=== PATIENT | male | born 1975 | race Caucasian/White ===

== ENCOUNTER 2017-03-29 11:50 | Emergency (ER) | payer OTHER ==
[~2017-03-29] VITALS: Ht 175.3 cm; Wt 71.5 kg
[~2017-03-29 11:50] MED LIST: ALBU8.5H3 INH; CEPH-443 PO; CEPH500C PO; ERYT1OIN6 LEFT EYE; HYDR-902 PO; IBUP-1542 PO; IBUP800T25 PO; SLSL1C50 TOP; TBR.3OP5 RIGHT EYE
[2017-03-29 11:56] VITALS: Ht 175.3 cm; Wt 71.5 kg
[2017-03-29] MEDS ORDERED: KETOROLAC 30 MG INJ IV STA (12:48)
[2017-03-29 13:33] LABS: BASOPHILS % 0.7 % (0.0-2.0); EOSINOPHILS # 0.2 10^3/ul (0.0-0.5); EOSINOPHILS % 5.3 % (0.0-7.0); HEMATOCRIT 42.4 % (42.0-52.0); HEMOGLOBIN 14.4 g/dl (14.0-18.0); LYMPHOCYTES # 1.5 10^3/ul (0.8-2.9); LYMPHOCYTES % 35.1 % (15.0-51.0); MEAN CORPUSCULAR HEMOGLOBIN 31.2 pg (29.0-33.0); MEAN PLATELET VOLUME 8.6 fl (7.4-10.4); MONOCYTE # 0.5 10^3/ul (0.3-0.9); MONOCYTES % 12.2 % (0.0-11.0); NEUTROPHILS % 46.7 % (39.0-77.0); PLATELET COUNT 315 10^3/UL (140-415); RED BLOOD COUNT 4.61 10^6/ul (4.70-6.10); RED CELL DISTRIBUTION WIDTH 12.8 % (11.5-14.5); WHITE BLOOD COUNT 4.2 10^3/ul (4.8-10.8)
--- NOTE | 2017-03-29 13:46 | RADRPT ---
PROCEDURE: Right upper quadrant abdominal ultrasound. CLINICAL INDICATION: Abdominal pain TECHNIQUE: Sellers scale and color doppler ultrasound images of the right upper quadrant of the abdom en. COMPARISON: None FINDINGS: Pancreas: Visualized portions appear of normal echogenicity without focal lesions. Liver: Morphology:Normal in size. Contour:Normal, no evidence of nodularity. Echogenicity: Normal. Focal lesions:None. Main portal vein: Patent with hepatopetal flow. Biliary System: Gallbladder wall: Normal thickness. Gallstones: None. Intrahepatic bile ducts: Normal caliber. Common bile duct diameter (mm): 3.0 Kidneys: Right length (cm) : 10.4 Right cortical thickness: Normal. Echogenicity: Normal. Hydronephrosis: None. Renal calculi: None. Focal lesions: None. Free fluid/ascites: None. Abdominal aorta: Not visualized by the glass selector. Other findings: None. IMPRESSION: Normal gallbladder without gallstones. RPTAT: AADD .Andres Zavala MD, MD Date Time Electronically viewed and signed by .Andres Zavala MD, on 03/29/2017 13:46 .B/
[2017-03-29 13:56] LABS: ADD UMIC NO; UR ASCORBIC ACID 40 mg/dL (NEGATIVE); UR BILIRUBIN (Dip) NEGATIVE (NEGATIVE); UR BLOOD (Dip) NEGATIVE (NEGATIVE); UR CLARITY CLEAR (CLEAR); UR COLOR YELLOW (YELLOW); UR GLUCOSE (Dip) NEGATIVE (NEGATIVE); UR KETONES (Dip) NEGATIVE (NEGATIVE); UR LEUKOCYTE ESTERASE (Dip) NEGATIVE Leu/ul (NEGATIVE); UR NITRITE (Dip) NEGATIVE (NEGATIVE); UR SPECIFIC GRAVITY (Dip) 1.019 (1.003-1.030); UR TOTAL PROTEIN (Dip) NEGATIVE (NEGATIVE); UR UROBILINOGEN (Dip) NEGATIVE (NEGATIVE)
[2017-03-29 14:00] LABS: ALBUMIN 4.2 g/dl (3.3-4.9); ALBUMIN/GLOBULIN RATIO 1.44; BILIRUBIN,INDIRECT 0.7 mg/dl (0-1.1); BILIRUBIN,TOTAL 0.7 mg/dl (0.2-1.3); CALCIUM 9.9 mg/dl (8.4-10.2); CREATININE 0.94 mg/dl (0.61-1.24); POTASSIUM 4.6 mmol/L (3.5-5.1); TOTAL PROTEIN 7.1 g/dl (6.1-8.1)
[2017-03-29] MEDS ORDERED: FAMO-96 PO (14:40)
[2017-03-29] MEDS ORDERED: IBUP400T22 PO (14:40)
--- NOTE | 2017-03-29 14:48 | ERD ---
ER Documentation Chief Complaint Date/Time DATE: 03/29/17 TIME: 14:43 Chief Complaint pt bib self with c/o right sided abd pain since early am HPI Patient is a 41-year-old male who presents to the emergency department for concerns of right upper quadrant pain which started 2 AM this morning. Patient states the pain woke him up. Patient describes the pain to be constant. Patient denies any radiation of the pain. He denies any fevers, chills, cough, nausea, vomiting, diarrhea, dysuria or flank pain. Patient denies any chest pain, shortness breath, left upper extremity pain or loss consciousness. She does report drinking daily. He states he drinks 3-422 ounce beers per day. She does report drinking last night. Recent travel. No sick contacts. ROS All systems reviewed and are negative except as per history of present illness. Medications Home Meds Active Scripts Ibuprofen* (Motrin*) 400 Mg Tab, 400 MG PO Q6, #30 TAB Prov:BREE CABRERA PA-C 03/29/17 Famotidine* (Pepcid*) 20 Mg Tablet, 20 MG PO BID for 30 Days, TAB Prov:BREE CABRERA PA-C 03/29/17 Silver Sulfadiazine* (Thermazene*) 1%-50 gm Cream..g., 1 APPLIC TOP BID for 14 Days, #1 JAR Prov:ZHANE LEI PA-C 05/20/16 Ibuprofen* (Ibuprofen*) 600 Mg Tablet, 600 MG PO Q6, #30 TAB Prov:NILTON HINES PA-C 05/18/16 Hydrocodone/Acetaminophen ([place] 10-325 Tablet) 1 Each Tablet, 1 EACH PO Q6, # 20 TAB Prov:NILTON HINES PA-C 05/18/16 Cephalexin* (Cephalexin*) 500 Mg Capsule, 500 MG PO Q6, #28 CAP Prov:NILTON HINES PA-C 05/18/16 Silver Sulfadiazine* (Thermazene*) 1%-50 gm Cream..g., 1 APPLIC TOP BID, #1 JAR Prov:NILTON HINES PA-C 05/18/16 Cephalexin* (Keflex*) 500 Mg Capsule, 500 MG PO QID for 5 Days, CAP Prov:DERIAN PANIAGUA PA-C 12/07/15 Ibuprofen* (Motrin*) 800 Mg Tab, 800 MG PO Q6 Y for PAIN, #30 TAB Prov:DERIAN PANIAGUA Diana PENA 12/07/15 Erythromycin (Erythromycin Opth) 3.5 Gm Oint..gm., 1 APPLIC LEFT EYE QID for 7 Days, EA Prov:JOVANI MOONEY 08/04/15 Tobramycin Sulfate* (Tobrex*) 0.3%-5ml Opht, 1 DROP RIGHT EYE Q4H for 5 Days, EA Prov:JOVANI MOONEY 08/04/15 Reported Medications Albuterol Sulfate* (Proair HFA*) 8.5 Gm Hfa.aer.ad, 2 PUFF INH Q4H Y for WHEEZING AND SOB, #1 INHALER 08/04/15 Allergies Allergies: Coded Allergies: No Known Allergy (Unverified , 08/04/15) PMhx/Soc History of Surgery: Yes (LEFT ELBOW ) Anesthesia Reaction: No Hx Neurological Disorder: No Hx Respiratory Disorders: Yes (ASTHMA) Hx Psychiatric Problems: Yes (ANXIETY, HX OF [address] [facility]) Hx Miscellaneous Medical Probl: Yes (HEP C, PARTIAL HEARING LOSS ) Hx Alcohol Use: Yes Hx Substance Use: Yes (METH) Hx Tobacco Use: Yes Smoking Status: Never smoker Physical Exam Vitals Vital Signs Date Time Temp Pulse Resp B/P Pulse Ox O2 Delivery O2 Flow Rate FiO2 03/29/17 11:56 97.0 97 20 127/58 95 Physical Exam GENERAL: Well-developed, well-nourished male. Appears in no acute distress. HEAD: Normocephalic, atraumatic. EYES: Pupils are equally reactive bilaterally. EOMs grossly intact. No conjunctival erythema. ENT: Moist mucous membranes. No uvula deviation. No kissing tonsils. NECK: Supple. No meningismus. Normal range of motion of the neck. LUNG: Clear to auscultation bilaterally. No rhonchi, wheezing, rales or coarse breath sounds. HEART: Regular rate and rhythm. No murmurs, rubs or gallops. ABDOMEN: Soft and nondistended. Tender to palpation in the right upper quadrant. Positive bowel sounds in all four quadrants. No rebound tenderness, no guarding. (-) McBurney's point tenderness. No CVA tenderness. EXTREMITIES: Equal pulses bilaterally. No peripheral clubbing, cyanosis or edema. No unilateral leg swelling. NEUROLOGIC: Alert and oriented. Moving all four extremities without any difficulty. Normal speech. Steady gait. SKIN: Normal color. Warm and dry. No rashes or lesions. Result Diagram: 03/29/17 1320 03/29/17 1320 Results 24 hrs Laboratory Tests Test 03/29/17 13:20 03/29/17 13:43 White Blood Count 4.210^3/ul Red Blood Count 4.6110^6/ul Hemoglobin 14.4g/dl Hematocrit 42.4% Mean Corpuscular Volume 92.0fl Mean Corpuscular Hemoglobin 31.2pg Mean Corpuscular Hemoglobin Concent 34.0g/dl Red Cell Distribution Width 12.8% Platelet Count 81350^3/UL Mean Platelet Volume 8.6fl Neutrophils % 46.7% Lymphocytes % 35.1% Monocytes % 12.2% Eosinophils % 5.3% Basophils % 0.7% Nucleated Red Blood Cells % 0.0/100WBC Neutrophils # (Manual) 2.010^3/ul Lymphocytes # 1.510^3/ul Monocytes # 0.510^3/ul Eosinophils # 0.210^3/ul Basophils # 0.010^3/ul Nucleated Red Blood Cells # 0.010^3/ul Sodium Level 136mmol/L Potassium Level 4.6mmol/L Chloride Level 101mmol/L Carbon Dioxide Level 29mmol/L Anion Gap 11 Blood Urea Nitrogen 16mg/dl Creatinine 0.94mg/dl Glucose Level 82mg/dl Calcium Level 9.9mg/dl Total Bilirubin 0.7mg/dl Direct Bilirubin 0.00mg/dl Indirect Bilirubin 0.7mg/dl Aspartate Amino Transf (AST/SGOT) 163IU/L Alanine Aminotransferase (ALT/SGPT) 258IU/L Alkaline Phosphatase 47IU/L Total Protein 7.1g/dl Albumin 4.2g/dl Globulin 2.90g/dl Albumin/Globulin Ratio 1.44 Lipase 260U/L Urine Color YELLOW Urine Clarity CLEAR Urine pH 6.0 Urine Specific [place] 1.019 Urine Ketones NEGATIVEmg/dL Urine Nitrite NEGATIVEmg/dL Urine Bilirubin NEGATIVEmg/dL Urine Urobilinogen NEGATIVEmg/dL Urine Leukocyte Esterase NEGATIVELeu/ul Urine Hemoglobin NEGATIVEmg/dL Urine Glucose NEGATIVEmg/dL Urine Total Protein NEGATIVEmg/dl Current Medications Medications (Trade) Dose Ordered Sig/Lety Route PRN Reason Start Time Stop Time Status Last Admin Dose Admin Ketorolac Tromethamine (Toradol) 30 mg ONCE STAT IV 03/29/17 12:48 03/29/17 12:49 DC 03/29/17 13:22 Procedures/MDM ED COURSE: The patient was stable throughout ED course. I kept the patient and/or family informed of laboratory and diagnostic imaging results throughout the ED course. DIAGNOSTIC IMAGING: Read by radiologist. Patient: CAITLIN EHNDRIX : 1975 Age: 41 Sex: M MR #: [id number] DOS: 03/29/17 0000 Ordering MD: BREE CABRERA PA-C Location: E Room/Bed: PROCEDURE: Right upper quadrant abdominal ultrasound. CLINICAL INDICATION: Abdominal pain TECHNIQUE: Sellers scale and color doppler ultrasound images of the right upper quadrant of the abdomen. COMPARISON: None FINDINGS: Pancreas: Visualized portions appear of normal echogenicity without focal lesions. Liver: Morphology:Normal in size. Contour:Normal, no evidence of nodularity. Echogenicity: Normal. Focal lesions:None. Main portal vein: Patent with hepatopetal flow. Biliary System: Gallbladder wall: Normal thickness. Gallstones: None. Intrahepatic bile ducts: Normal caliber. Common bile duct diameter (mm): 3.0 Kidneys: Right length (cm) : 10.4 Right cortical thickness: Normal. Echogenicity: Normal. Hydronephrosis: None. Renal calculi: None. Focal lesions: None. Free fluid/ascites: None. Abdominal aorta: Not visualized by the catalogue compiler. Other findings: None. IMPRESSION: Normal gallbladder without gallstones. RPTAT: AADD .Andres Zavala MD, Date Time Electronically viewed and signed by .Andres Zavala MD, on 03/29/2017 13:46 .B/ CC: BREE CABRERA PA-C PROCEDURES: None. MEDICATIONS GIVEN: [None.] Patient tolerated medication well with no adverse reactions. Patient reported improvement in pain. MEDICAL DECISION MAKING: This is a 41-year-old male who presents emergency department concerns of right upper quadrant pain which started around 2 AM this morning. Vital signs were reviewed. Patient is afebrile. CBC showed no evidence of systemic infection or severe anemia. CMP showed no evidence of electrolyte abnormalities, severe acidosis, alkalosis , renal failure. Patient's AST was noted to be 163, ALT of 258. Patient does admit to daily alcohol use. Elevated friends and likely due to daily alcohol use. Lipase showed no evidence of acute pancreatitis. UA showed no evidence of acute infection or hematuria. Gallbladder ultrasound was unremarkable. At this time, patient's presentation is most consistent with his liver enzymes and right upper quadrant abdominal pain.. I have a much lower clinical concern for acute coronary syndrome, AAA, mesenteric ischemia, lower lobe pneumonia, DKA , bowel perforation, bowel obstruction, cholecystitis, choledocholithiasis, pancreatitis, GERD, splenic rupture, diverticulitis, UTI, pyelonephritis, nephrolithiasis, appendicitis/ PRESCRIPTIONS: Pepcid, ibuprofen DISCHARGE: At this time, patient is stable for discharge and outpatient management. Alcohol cessation advised. patient was given a copy of all imaging and blood work obtained today. I have instructed the patient to follow-up with his/her primary care physician in 1-2 days. I have instructed the patient to promptly return to the ER at any time for any new or worsening symptoms including increased pain, nausea, vomiting, diarrhea, fever, weakness or LOC. The patient and/or family expressed understanding of and agreement with this plan. All questions were answered. Home care instructions were provided. Disclaimer: Inadvertent spelling and grammatical errors are likely due to EHR/ dictation software use and do not reflect on the overall quality of patient care. Also, please note that the electronic time recorded on this note does not necessarily reflect the actual time of the patient encounter. Departure Diagnosis: Primary Impression: Elevated liver enzymes Additional Impression: RUQ abdominal pain Condition: Stable Patient Instructions: Common Tests for Liver Disease, Abdominal Pain Additional Instructions: Stop drinking alcohol. Call your primary care doctor TOMORROW for an appointment during the next 1-2 days.See the doctor sooner or return here if your condition worsens before your appointment time. BREE CABRERA PA-C Mar 29, 2017 14:48
[2017-03-29 14:54] VITALS: BP 120/88; PULSE 77; RESP 18
== END 2017-03-29 15:05 | disposition home or self-care (01) ==
LOC: FTE 11:50
DX: R74.8 Abnormal levels of other serum enzymes (principal); J45.909 Unspecified asthma, uncomplicated
CPT/HCPCS: 36415; 76705; 80053; 81003; 83690; 85025; 96374; J1885; Z7502

== ENCOUNTER 2017-06-03 22:29 | Emergency (ER) | payer OTHER ==
[~2017-06-03] VITALS: Ht 175.3 cm; Wt 75.0 kg
[~2017-06-03 22:29] MED LIST changes: +FAMO-96 PO; +IBUP400T22 PO
[2017-06-03 22:31] VITALS: Ht 175.3 cm; Wt 75.0 kg
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
[2017-06-04 01:14] VITALS: BP 105/60; PULSE 76; RESP 14; TEMP 98.3
== END 2017-06-04 01:15 | disposition home or self-care (01) ==
LOC: E/R 22:29
DX: S01.01XA Laceration without foreign body of scalp, initial encounter (principal); J45.909 Unspecified asthma, uncomplicated; F17.210 Nicotine dependence, cigarettes, uncomplicated; Y09 Assault by unspecified means
CPT/HCPCS: 12001; 70450; Z7502

== ENCOUNTER 2018-09-30 22:48 | Emergency (ER) | payer SELFPAY ==
[~2018-09-30] VITALS: Ht 175.3 cm; Wt 75.5 kg
[~2018-09-30 22:48] MED LIST changes: -ALBU8.5H3 INH; +ALBU8.5H8 INH; +HYDR-3980 PO; -HYDR-902 PO; +IBUP-1561 PO; -IBUP400T22 PO; -IBUP800T25 PO; +IBUP800T48 PO
[2018-09-30 22:59] VITALS: BP 108/74; PULSE 107; RESP 18; Ht 175.3 cm; Wt 75.5 kg
== END 2018-10-01 01:45 | disposition left against medical advice (07) ==
LOC: FTE 22:48
DX: Z53.21 Procedure and treatment not carried out due to patient leaving prior to being seen by health care provider (principal)